=== PATIENT | male | born 1955 | race Caucasian/White ===

== ENCOUNTER 2019-11-04 23:34 | Emergency (ER) | payer MEDICARE, OTHER ==
[~2019-11-04] VITALS: Ht 170.2 cm; Wt 109.1 kg
[~2019-11-04 23:34] MED LIST: ALDA25TA PO; BETA1OI EXT; CLOP75TA2 PO; IBUP200T2 PO; LISI5TAB PO; LYRI150C PO; LYRI75CA PO; METO-346 PO; NITR4TASL SL; OMEP20CA3 PO; PAXI40TA2 PO; SIMV40TA2 PO; TRAZ50TA2 PO
[2019-11-05] MEDS ORDERED: PROAAER10 INH (00:27)
[2019-11-05] MEDS ORDERED: ACET-907 PO (00:27)
[2019-11-05] MEDS ORDERED: ZOCO80TA PO (00:34)
[2019-11-05] MEDS ORDERED: ELIQ5TAB PO (00:34)
[2019-11-05] MEDS ORDERED: LISI10TA4 PO (00:34)
[2019-11-05] MEDS ORDERED: FLON1SPR (00:34)
[2019-11-05] MEDS ORDERED: CVS1SPR4 MT (00:34)
[2019-11-05] MEDS ORDERED: TRAZ-189 PO (00:34)
[2019-11-05] MEDS ORDERED: SPIR-10 PO (00:34)
[2019-11-05] MEDS ORDERED: PLAV1TAB2 PO (00:34)
[2019-11-05] MEDS ORDERED: SUBO8MIS SL ×2 (00:34)
[2019-11-05] MEDS ORDERED: VITMTA PO (00:34)
[2019-11-05] MEDS ORDERED: FURO20TA2 PO (00:34)
[2019-11-05 00:50] VITALS: BP 106/56
== END 2019-11-05 01:08 | disposition home or self-care (01) ==
LOC: M ED 23:34
DX: F43.10 Post-traumatic stress disorder, unspecified (principal); I10 Essential (primary) hypertension; F31.9 Bipolar disorder, unspecified; Z79.899 Other long term (current) drug therapy; Z79.891 Long term (current) use of opiate analgesic; Z79.01 Long term (current) use of anticoagulants; F17.210 Nicotine dependence, cigarettes, uncomplicated